=== PATIENT | female | born 1965 ===

== ENCOUNTER 2024-07-05 06:50 | Day surgery (SDC) | payer BC ==
[2024-07-05] MEDS ORDERED: Lidocaine 2% 5 ML SDV IV ONE (06:51)
[2024-07-05] MEDS ORDERED: Propofol 200 MG/20 ML SDV IV ONE (06:51)
[2024-07-05] MEDS ORDERED: Sodium Chloride 0.9% 10 ML Syringe FLUSH PRN (07:00)
[2024-07-05] MEDS: Lactated Ringers 1,000 ML IV SCH (07:54)
[2024-07-05] MEDS: Simethicone Drops 40 MG/0.6 ML 30 ML Bottle ONE (08:25)
== END 2024-07-05 09:49 | disposition home or self-care (01) ==
LOC: FB.SDS 06:50
PROVIDERS: ATTEND Surgery
DX: Z12.11 Encounter for screening for malignant neoplasm of colon (principal); K57.30 Diverticulosis of large intestine without perforation or abscess without bleeding; Z80.0 Family history of malignant neoplasm of digestive organs; Z79.899 Other long term (current) drug therapy; Z88.8 Allergy status to other drugs, medicaments and biological substances
CPT/HCPCS: A9270-GY; J2704; J7120